=== PATIENT | female | born 1965 | race Caucasian/White ===

== ENCOUNTER → 2017-09-19 | Outpatient (CLI) | payer BC ==
[2015-02-15 18:09] VITALS: BP 114/68
[~2017-09-19] MED LIST: ASPIRIN 32325 MG/TAB PO; FLONASE NASAL S16 GM NS; IBUPROFEN200 M1 PO; PEPCID AC 10MG10 MG PO; SYNTHROID0.075 MG PO; YAZ 28 3 MG-0.01 TAB PO
== END ==
LOC: RAD 08:29
DX: Z12.31 Encounter for screening mammogram for malignant neoplasm of breast (principal)
CPT/HCPCS: G0202

== ENCOUNTER → 2018-10-19 | Outpatient (CLI) | payer BC ==
[2015-02-15 18:09] VITALS: BP 114/68
[2018-10-19 17:20] LABS: EOS # 0.3 (0.04-0.40); EOS % 5.7 % (1.0-5.0); HEMATOCRIT 33.4 % (37.0-47.0); HEMOGLOBIN 9.7 g/dL (12.5-16.0); LYMPH# 1.3 (1.50-4.00); MEAN CELL VOLUME 82 fl (78-100); MEAN PLATELET VOLUME 10.6 fl (7.4-10.4); MONO # 0.6 (0.20-0.80); NEU # 3.5 (1.40-6.50); PLATELET COUNT 266 K/mm3 (130-400); RED CELL DISTRIBUTION WIDTH 14.1 % (11.5-14.5); WHITE BLOOD COUNT 5.8 K/mm3 (4.8-10.8)
[2018-10-19 17:21] LABS: MEAN CORPUSCULAR HEMOGLOBIN 24 pg (27-31); MEAN CORPUSCULAR HGB CONC 29 g/dL (33-37)
[2018-10-19 17:25] LABS: CALCIUM 9.1 mg/dL (8.4-10.2); POTASSIUM 3.4 mmol/L (3.6-5.0)
[2018-10-19 17:50] LABS: PH-URINE 5.5 (5.0 - 8.0); URINE APPEARANCE CLEAR; URINE BILIRUBIN NEGATIVE (NEGATIVE); URINE BLOOD NEGATIVE (NEGATIVE); URINE COLOR YELLOW; URINE GLUCOSE NEGATIVE (NEGATIVE); URINE KETONE NEGATIVE (NEGATIVE); URINE LEUKOCYTE ESTERASE 1+ (NEGATIVE); URINE NITRATE NEGATIVE (NEGATIVE); URINE PROTEIN(semi-quant) TRACE mg/dL (NEGATIVE); URINE UROBILINOGEN NORMAL (NORMAL)
== END ==
LOC: LAB 16:59
PROVIDERS: Family Medicine
DX: R19.7 Diarrhea, unspecified (principal)

== ENCOUNTER → 2020-04-16 | Outpatient (CLI) | payer BC ==
[2015-02-15 18:09] VITALS: BP 114/68
[2020-04-16 11:32] LABS: EOS # 0.3 (0.04-0.40); EOS % 4.7 % (1.0-5.0); HEMATOCRIT 39.6 % (37.0-47.0); HEMOGLOBIN 12.9 g/dL (12.5-16.0); LYMPH# 1.3 (1.50-4.00); MEAN CELL VOLUME 97 fl (78-100); MEAN CORPUSCULAR HEMOGLOBIN 32 pg (27-31); MEAN CORPUSCULAR HGB CONC 33 g/dL (33-37); MEAN PLATELET VOLUME 10.2 fl (7.4-10.4); MONO # 0.5 (0.20-0.80); NEU # 4.1 (1.40-6.50); PLATELET COUNT 258 K/mm3 (130-400); RED BLOOD COUNT 4.09 M/mm3 (4.10-5.30); RED CELL DISTRIBUTION WIDTH 12.4 % (11.5-14.5); WHITE BLOOD COUNT 6.2 K/mm3 (4.8-10.8)
[2020-04-16 11:54] LABS: ALBUMIN 4.4 g/dL (3.5-5.0); POTASSIUM 3.7 mmol/L (3.5-5.1)
[2020-04-16 11:55] LABS: CALCIUM 9.4 mg/dL (8.3-10.5)
[2020-04-16 11:56] LABS: TOTAL PROTEIN 7.6 g/dL (6.4-8.3)
[2020-04-16 11:58] LABS: TOTAL BILIRUBIN 0.4 mg/dL (0.2-1.2)
== END ==
LOC: LAB 11:17
PROVIDERS: Physician Assistant
DX: I10 Essential (primary) hypertension (principal); E03.9 Hypothyroidism, unspecified; F41.9 Anxiety disorder, unspecified; Z72.820 Sleep deprivation; R42 Dizziness and giddiness

== ENCOUNTER → 2021-03-16 | Outpatient (CLI) | payer BC ==
[2015-02-15 18:09] VITALS: BP 114/68
== END ==
LOC: LAB 16:57
DX: R53.83 Other fatigue (principal)

== ENCOUNTER → 2021-06-08 | Outpatient (CLI) | payer BC | LOC: LAB 16:11 | DX: E03.9 Hypothyroidism, unspecified (principal) ==

== ENCOUNTER 2022-12-08 10:14 | Emergency (ER) | payer OTHER ==
[2022-12-08 10:32] VITALS: BP 134/79
[2022-12-08] MEDS ORDERED: SYNTHROID137 MCG PO (10:35)
[2022-12-08] MEDS ORDERED: TESTOSTERONE1 POW (10:35)
[2022-12-08] MEDS ORDERED: PRILOSEC OTC20 MG PO (10:36)
[2022-12-08 13:00] LABS: BASO # 0.03 K/mm3 (0.02-0.10); EOS # 0.13 K/mm3 (0.04-0.40); EOS % 2.3 % (1.0-5.0); HEMATOCRIT 40.7 % (37.0-47.0); HEMOGLOBIN 13.2 g/dL (12.5-16.0); LYMPH# 1.29 K/mm3 (1.50-4.00); MEAN CELL VOLUME 100 fl (78-100); MEAN CORPUSCULAR HEMOGLOBIN 33 pg (27-31); MEAN CORPUSCULAR HGB CONC 32 g/dL (33-37); MONO # 0.47 K/mm3 (0.20-0.80); NEU # 3.61 K/mm3 (1.40-6.50); PLATELET COUNT 214 K/mm3 (130-400); RED BLOOD COUNT 4.06 M/mm3 (4.10-5.30); WHITE BLOOD COUNT 5.5 K/mm3 (4.8-10.8)
[2022-12-08 13:30] LABS: ALBUMIN 4.7 g/dL (3.5-5.0)
[2022-12-08 13:31] LABS: POTASSIUM 3.7 mmol/L (3.5-5.1); SODIUM 140 mmol/L (136-145)
[2022-12-08 13:33] LABS: GLUCOSE 111 mg/dL (65-105); TOTAL PROTEIN 7.2 g/dL (6.4-8.3)
[2022-12-08 13:34] LABS: CARBON DIOXIDE 24 mmol/L (22-29)
[2022-12-08 13:38] LABS: AST-SGOT 21 U/L (5-34)
[2022-12-08 13:39] LABS: ALT/SGPT 21 U/L (0-55)
[2022-12-08 13:50] LABS: TROPONIN-I < 0.030 ng/mL (<0.030)
[2022-12-08 14:01] LABS: TOTAL BILIRUBIN 0.7 mg/dL (0.2-1.2)
[2022-12-08] MEDS ORDERED: KETOROLAC10 MG PO (14:29)
[2022-12-08] MEDS ORDERED: CYCLOBENZAPRINE10 M1 PO (14:29)
== END 2022-12-08 14:44 | disposition home or self-care (01) ==
LOC: ED 10:14
PROVIDERS: Nurse Practitioner
DX: R07.89 Other chest pain (principal); Z28.310 Unvaccinated for COVID-19; V53.5XXA Driver of pick-up truck or van injured in collision with car, pick-up truck or van in traffic accident, initial encounter; Y92.410 Unspecified street and highway as the place of occurrence of the external cause
CPT/HCPCS: J1885